=== PATIENT | female | born 1970 | race Caucasian/White ===

== ENCOUNTER 2017-06-26 20:15 | Emergency (ER) | payer MEDICAID, OTHER ==
[2017-06-26 20:27] VITALS: BP 138/74
--- NOTE | 2017-06-26 20:27 | EDM.PDOC ---
ED HPI GENERAL MEDICAL PROBLEM - General Chief Complaint: Neurological Problem Stated Complaint: DIZZY FOR 2 HOURS Time Seen by Provider: 06/26/17 20:39 Source of Information: Reports: Patient, Family (spouse) History Limitations: Reports: No Limitations - History of Present Illness INITIAL COMMENTS - FREE TEXT/NARRATIVE: 46-year-old female presents to the ED with complaint of feeling dizzy for the last 2 hours. Patient has a history of intermittent paroxysmal vertigo but not for many years. She states symptoms started about 2 hours ago and are worsened with movement of the head or neck. Better she's lying perfectly still. No associated nausea vomiting. Patient wears bilateral hearing aids with no recent changes. She does not appreciate any increased humming or buzzing in her ears. No associated headache. Does not feel her vision is blurred. She states she has a previous cardiac problem with intermittent paroxysmal ventricular tachyarrhythmias that was ablated in 2006. Prior to that she had a defibrillator pacemaker placed. It was removed after the ablation. She used to have a lot more vertigo or dizzy episodes prior to the ablation. She really doesn't feel lightheaded it's more vertigo. appreciates that she is offkilter and her gait listing a little bit to the left like she is walking drunk. Denies any recent falls or closed head injuries. She did have supper and is been eating and drinking well. She's not been recently ill with any upper respiratory tract infection or sinus infection. Onset: Today Onset Date: 06/26/17 Onset Time: 18:45 Duration: Hour(s): (Targeted about 2-1/2 hours ago.) Location: Reports: Generalized (Sense of spinning and) Quality: Reports: Other (Paroxysmal vertigo) Severity: Moderate Improves with: Reports: Rest Worsens with: Reports: Movement Context: Reports: Other (Spontaneous occurrence which it has done many times in the past but not recently.). 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 1 dose PO ASDIRECTED 06/04/16 [History] Levothyroxine 175 mcg PO ACBRK #60 tab 06/26/17 [Rx] Meclizine HCl 25 mg PO Q8H #15 tablet 06/26/17 [Rx] Past Medical History Cardiovascular History: Reports: Other (See Below) Other Cardiovascular History: CPVT--initially treated with defibrillator pacemaker and then in 2006 underwent ablation and the defibrillator pacemaker was removed. Interestingly her mother has it and one of her sisters from it and her other sister has it as well. Neurological History: Reports: Vertigo (Intermittent paroxysmal benign vertigo.) - Past Surgical History HEENT Surgical History: Reports: Other (See Below) Social & Family History - Tobacco Use Smoking Status *Q: Never Smoker Second Hand Smoke Exposure: No - Alcohol Use Days Per Week of Alcohol Use: 1 Number of Drinks Per Day: 2 Total Drinks Per Week: 2 - Recreational Drug Use Recreational Drug Use: No - Living Situation & Occupation Living situation: Reports: Occupation: Employed ED ROS GENERAL - Review of Systems Review Of Systems: See Below Constitutional: Denies: Fever, Chills, Malaise, Weakness, Fatigue, Decreased Appetite, Weight Loss HEENT: Reports: Hearing Loss (Wears hearing aids in both ears.), Vertigo. Denies: Vision Change Respiratory: Reports: No Symptoms Cardiovascular: Reports: No Symptoms. Denies: Chest Pain, Blood Pressure Problem, Palpitations Endocrine: Reports: No Symptoms (She checked her pulse right away did not identify any palpitations) GI/Abdominal: Reports: No Symptoms : Reports: No Symptoms Musculoskeletal: Reports: No Symptoms Skin: Reports: No Symptoms Neurological: Reports: Dizziness, Difficulty Walking (Listing a little bit to the left walking ataxic like she has been drinking.), Gait Disturbance Psychiatric: Reports: No Symptoms Hematologic/Lymphatic: Reports: No Symptoms Immunologic: Reports: No Symptoms ED EXAM, DIZZINESS - Physical Exam Exam: See Below Exam Limited By: No Limitations General Appearance: Alert, WD/WN, No Apparent Distress Eye Exam: Bilateral Eye: Normal Inspection Ears: Normal External Exam, Normal TMs Throat/Mouth: Normal Inspection, Normal Lips, Normal Teeth, Normal Oropharynx Head Exam: Atraumatic, Normocephalic Vertigo: worsens with head to L, short duration Neck: Normal Inspection, Supple, Non-Tender, Full Range of Motion. No: Carotid Bruit, Lymphadenopathy (L), Lymphadenopathy (R) Respiratory/Chest: No Respiratory Distress, Lungs Clear, Normal Breath Sounds, No Accessory Muscle Use Cardiovascular: Normal Peripheral Pulses, Regular Rate, Rhythm, No Edema, No Gallop, No Murmur, Other GI/Abdominal: Normal Bowel Sounds, Soft, Non-Tender, No Organomegaly Neurological: Alert, Normal Mood/Affect, Normal Dorsiflexion, CN II-XII Intact, Normal Plantar Flexion, Normal Gait, Normal Reflexes, No Motor/Sensory Deficits , Oriented x 3, Other. No: Abnormal Finger to Nose Back Exam: Normal Inspection, Full Range of Motion Extremities: Normal Inspection, Normal Range of Motion, Non-Tender, No Pedal Edema Psychiatric: Normal Affect, Normal Mood Skin Exam: Warm, Dry, Intact, Normal Color, No Rash EKG INTERPRETATION EKG Date: 06/26/17 Time: 21:00 Rhythm: Other Rate (Beats/Min): 56 [place]: Normal P-Wave: Present QRS: Other (There is decreased voltage both in the precordial and limb leads.) ST-T: Other (There is T-wave inversion V2 flat in V3 which are nonspecific findings.) QT: Prolonged (QT is moderately prolonged) EKG Interpretation Comments: Abnormal ECG Course - Vital Signs Last Recorded V/S: Last Vital Signs Temp 36.3 C 06/26/17 20:25 Pulse 56 L 06/26/17 20:25 Resp 11 L 06/26/17 20:25 BP 138/74 06/26/17 20:25 Pulse Ox 98 06/26/17 20:25 - Orders/Labs/Meds Orders: Active Orders 24 hr Category Date Time Status EKG Documentation Completion [RC] STAT Care 06/26/17 20:40 Active Labs: Laboratory Tests 06/26/17 06/26/17 Range/Units 20:45 20:45 WBC 7.35 (3.98-10.04) K/mm3 RBC 4.39 (3.98-5.22) M/mm3 Hgb 13.3 (11.2-15.7) gm/L Hct 40.0 (34.1-44.9) % MCV 91.1 (79.4-94.8) fl MCH 30.3 (25.6-32.2) pg MCHC 33.3 (32.2-35.5) g/dl RDW Std Deviation 42.0 (36.4-46.3) fL Plt Count 155 L (182-369) K/mm3 MPV 11.8 (9.4-12.3) fl Neutrophils % (Manual) 44 (40-60) % Band Neutrophils % 0 (0-10) % Lymphocytes % (Manual) 47 H (20-40) % Atypical Lymphs % 0 % Monocytes % (Manual) 8 (2-10) % Eosinophils % (Manual) 1 (0.7-5.8) % Basophils % (Manual) 0 L (0.1-1.2) Platelet Estimate Adequate Plt Morphology Comment Normal RBC Morph Comment Normal Sodium 140 (136-145) mEq/L Potassium 3.5 (3.5-5.1) mEq/L Chloride 103 (98-107) mEq/L Carbon Dioxide 28 (21-32) mEq/L Anion Gap 12.5 (5-15) BUN 17 (7-18) mg/dL Creatinine 1.1 H (0.55-1.02) mg/dL Est Cr Clr Drug Dosing 55.77 mL/min Estimated GFR (MDRD) 54 (>60) mL/min BUN/Creatinine Ratio 15.5 (14-18) Glucose 93 (74-106) mg/dL Calcium 9.1 (8.5-10.1) mg/dL Magnesium 2.0 (1.8-2.4) mg/dl Total Bilirubin 0.2 (0.2-1.0) mg/dL AST 15 (15-37) U/L ALT 33 (14-59) U/L Alkaline Phosphatase 54 (46-116) U/L Troponin I < 0.017 (0.00-0.056) ng/mL C-Reactive Protein < 0.2 (<1.0) mg/dL Total Protein 7.5 (6.4-8.2) g/dl Albumin 4.0 (3.4-5.0) g/dl Globulin 3.5 gm/dL Albumin/Globulin Ratio 1.1 (1-2) TSH 3rd Generation 23.974 H (0.358-3.74) uIU/mL Meds: Medications Discontinued Medications Generic Name Dose Route Start Last Admin Trade Name Shakir PRN Reason Stop Dose Admin Dextrose/Sodium Chloride 1,000 mls @ 250 mls/hr 06/26/17 20:45 06/26/17 20:48 Dextrose 5%-Normal Saline IV 250 mls/hr ASDIRECTED MARI Administration Lorazepam 0.5 mg 06/26/17 20:39 06/26/17 20:48 Ativan IVPUSH 06/26/17 20:40 0.5 mg ONETIME ONE Administration Meclizine HCl 25 mg 06/26/17 22:08 06/27/17 01:02 Antivert PO 06/26/17 22:09 Not Given ONETIME ONE Metoclopramide HCl 10 mg 06/26/17 20:39 06/26/17 20:48 Reglan IVPUSH 06/26/17 20:40 10 mg ONETIME ONE Administration - Radiology Interpretation Free Text/Narrative:: 46-year-old female presents the ED with paroxysmal vertigo. It is lasted about 2 hours. Worse with movement that or if she holds still. No recent falls or closed head injuries. Patient reports she's had similar episodes in the past but never lasting quite this long. No associated nausea or vomiting. No headache. Neurological exam is normal. There is no nystagmus either. She has ataxic however on walking listing slightly towards the right side. No neurological deficit on exam. Plan routine labs will be obtained. IV will be D5 normal saline at 250 mils per hour. Given Reglan 10 mg IV with Ativan 0.5 mg IV for relief of vertigo. - Re-Assessments/Exams Free Text/Narrative Re-Assessment/Exam: 06/26/17 22:09 Labs reveal a normal white count of 7.35 differential 44% neutrophils no bands and 47% lymphocytes suggesting possible viral etiology. Hemoglobin is 13.3 with hematocrit of 40.0. Bili count is 155,000. Sodium 140 potassium low-normal at 3.5. Chloride 103 bicarbonate 28. And a gap is 12.5. BUN is 17 with a creatinine of 1.1. GFR is 54. Glucose is 93. Calcium 9.1 magnesium 2.0. Liver function normal cardiac markers normal .TSH is 23.974 indicating significant hypothyroidism. 06/26/17 22:10 I have the patient up in the room and she is able to walk with less vertiginous-like symptoms. Plan will be to place her on meclizine 25 mg by mouth now and then 25 mg every 8 hours for the next 5 days for vertigo relief. Patient is not sure of her current thyroid or levothyroxine dose is 100 g her 125 g. She admits that she is taking it daily. She has all aside symptoms of significant hypothyroidism with fatigue hair loss dry skin constipation , bradycardia etc. With a TSH of 23 she is significantly hypothyroid. I'm going to increase her levothyroxine to 175 g daily which she is to start tomorrow. She will have repeat TSH in clinic in 6 weeks' time. She mildly well require a higher dose than 175 to bring her TSH down between 1 and 2. Departure - Departure Time of Disposition: 22:16 Disposition: Home, Self-Care 01 Condition: Fair Clinical Impression: Benign paroxysmal vertigo, left ear, Hypothyroidism (acquired) - Discharge Information Prescriptions: Levothyroxine 175 mcg PO ACBRK #60 tab Meclizine HCl 25 mg PO Q8H #15 tablet Instructions: Hypothyroidism Referrals: Edita Cody NP [Primary Care Provider] - Forms: ED Department Discharge Additional Instructions: Evaluation in the emergency him today in regards to development of paroxysmal benign positional vertigo. Worse at the left labyrinth or balance mechanism is malfunctioning. Created problems walking with ataxic gait without any nausea or vomiting. Symptoms are better if you hold still. You're treated in the ED with intravenous fluids and medications Reglan 10 mg and Ativan 0.5 mg to bring the vertigo under control. You have very mild symptoms after an hour and a quarter of had the medication. Suggest meclizine 25 mg every 8 hours for the next 5 days with first tablet provided in the ED at the time of discharge. Second problem identified was hypothyroidism.. It appears current thyrodi medication dose is inadequately controlling your hypothyroidism.Suggest an increse of Levothroxin to 175mcg per day. He will require repeat thyroid function testing in approximate 6 weeks time. Please attend to personal care physician in this regard. Also I would suggest having your serum lipids and cholesterol levels checked as well. - My Orders Last 24 Hours: My Active Orders 06/26/17 20:40 EKG Documentation Completion [RC] STAT - Assessment/Plan Last 24 Hours: My Active Orders 06/26/17 20:40 EKG Documentation Completion [RC] STAT
[2017-06-26] MEDS ORDERED: Metoclopramide 10 MG/2 ML SDV IVPUSH ONE (20:39)
[2017-06-26] MEDS ORDERED: LORazepam 2 MG/ML SDV IVPUSH ONE (20:39)
[2017-06-26] MEDS ORDERED: Dextrose 5%-0.9% NaCl 1,000 ML IV SCH (20:45)
[2017-06-26] MEDS ORDERED: Meclizine 12.5 MG Tab PO ONE (22:08)
== END 2017-06-26 22:30 | disposition home or self-care (01) ==
LOC: JD.ED 20:15
DX: H81.12 Benign paroxysmal vertigo, left ear (principal); E03.9 Hypothyroidism, unspecified; Z79.899 Other long term (current) drug therapy; Z88.8 Allergy status to other drugs, medicaments and biological substances
CPT/HCPCS: 36415; 80053; 83735; 84443; 84484; 85025; 86140; 93005; 96361; 96374; 96375; 99284; J2060; J2765; J7042

== ENCOUNTER → 2019-03-29 | Day surgery (SDC) | payer SELFPAY ==
[~2019-03-29] MED LIST: HYDROmorphone 0.5 MG/0.5 ML Syringe IVPUSH PRN; Ibuprofen 600 MG Tab PO PRN; Ketorolac 30 MG/ML SDV IVPUSH PRN; Ketorolac 30 MG/ML SDV IVPUSH SCH; Lactated Ringers 1,000 ML IV SCH; Lactated Ringers 1,000 ML ONE; Lidocaine 1% 4 ML ONE; Lidocaine 1%/Sod Bicarbonate in NS 8.4% 1 ML Syringe IDERM PRN; Midazolam 1 MG/ML 2 ML SDV ONE; Neostigmine Methylsulfate 1 MG/ML 5 ML Syringe ONE; Ondansetron 4 MG/2 ML SDV IVPUSH PRN; Ondansetron 4 MG/2 ML SDV ONE; Propofol 200 MG/20 ML SDV ONE; Rocuronium 100 MG/10 ML MDV ONE; Sodium Chloride 0.9% 10 ML Syringe FLUSH PRN; ceFAZolin 1 GM Vial ONE; fentaNYL 100 MCG/2 ML SDV IVPUSH PRN; fentaNYL 250 MCG/5 ML SDV ONE
--- NOTE | 2019-03-29 06:44 | PCM.PREANE ---
Preanesthetic Assessment - Anesthesia/Transfusion/Family Hx Anesthesia History: Prior Anesthesia Without Reaction Family History of Anesthesia Reaction: No Transfusion History: No Prior Transfusion(s) - Review of Systems General: No Symptoms Pulmonary: No Symptoms Cardiovascular: Dyspnea on Exertion Gastrointestinal: No Symptoms Neurological: No Symptoms Other: Reports: Thyroid Problems (hypothyroid), Anxiety - Physical Assessment NPO Status Date: 03/28/19 NPO Status Time: 00:00 Vital Signs: Last Vital Signs Temp 36.6 C 03/29/19 06:20 Pulse 59 L 03/29/19 06:20 Resp 16 03/29/19 06:20 BP 124/73 03/29/19 06:20 Pulse Ox 96 03/29/19 06:20 Height: 1.63 m Weight: 85.094 kg ASA Class: 2 Mental Status: Alert & Oriented x3 Airway Class: Mallampati = 1 Dentition: Reports: Normal Dentition, [place](s) Thyro-Mental Finger Breadths: 3 Mouth Opening Finger Breadths: 3 ROM/Head Extension: Full Lungs: Clear to Auscultation, Normal Respiratory Effort Cardiovascular: Regular Rate, Regular Rhythm - Lab Values: Laboratory Last Values Urine Color Yellow (Yellow) 03/29/19 06:15 Urine Appearance Clear (Clear) 03/29/19 06:15 Urine pH 6.5 (5.0-8.0) 03/29/19 06:15 Ur Specific [place] 1.025 (1.005-1.030) 03/29/19 06:15 Urine Protein Negative (Negative) 03/29/19 06:15 Urine Glucose (UA) Negative (Negative) 03/29/19 06:15 Urine Ketones Negative (Negative) 03/29/19 06:15 Urine Occult Blood Negative (Negative) 03/29/19 06:15 Urine Nitrite Negative (Negative) 03/29/19 06:15 Urine Bilirubin Negative (Negative) 03/29/19 06:15 Urine Urobilinogen 0.2 (0.2-1.0) 03/29/19 06:15 Ur Leukocyte Esterase 1+ (Negative) H 03/29/19 06:15 Urine HCG, Qual Negative (NEGATIVE) 03/29/19 06:14 - Allergies Allergies/Adverse Reactions: Allergies Allergy/AdvReac Type Severity Reaction Status Date / Time gabapentin Allergy Intermediate Hives Verified 03/28/19 14:33 - Anesthesia Plan Pre-Op Medication Ordered: None - Acknowledgements Anesthesia Type Planned: General Anesthesia Pt an Appropriate Candidate for the Planned Anesthesia: Yes Alternatives and Risks of Anesthesia Discussed w Pt/Guardian: Yes Pt/Guardian Understands and Agrees with Anesthesia Plan: Yes PreAnesthesia Questionnaire HEENT History: Reports: Hard of Hearing, Impaired Vision Other HEENT History: Wears glasses, bilateral hearing aids, retinis pigmentosa Cardiovascular History: Reports: Other (See Below) Other Cardiovascular History: CPVT--initially treated with defibrillator pacemaker and then in 2006 underwent ablation and the defibrillator pacemaker was removed. Interestingly her mother has it and one of her sisters from it and her other sister has it as well. Respiratory History: Reports: None Gastrointestinal History: Reports: None Genitourinary History: Reports: Other (See Below) Other Genitourinary History: renal cyst [employer] SUPERINTENDENT History: Reports: , Other (See Below) Other OB/BYN History: ascus, pelvic pain, irregular menses, , cerical cryosurgery, LEEP, colposcopy Musculoskeletal History: Reports: None Neurological History: Reports: Headaches, Chronic, Vertigo Other Neuro History: bulging lumbar disc L4L5, herniated disc t4t5, degeneration nerve surgery to right, degenerative disc disease Psychiatric History: Reports: Anxiety Endocrine/Metabolic History: Reports: Diabetes, Gestational, Hypothyroidism, Obesity/BMI 30+ Hematologic History: Reports: None Immunologic History: Reports: None Oncologic (Cancer) History: Reports: None Dermatologic History: Reports: None - Past Surgical History Head Surgeries/Procedures: Reports: None HEENT Surgical History: Reports: Other (See Below) Other HEENT Surgeries/Procedures: retinitis pigmentosa Cardiovascular Surgical History: Reports: Cardiac Ablation Respiratory Surgical History: Reports: None GI Surgical History: Reports: None Female Surgical History: Reports: None, Tubal Ligation Male Surgical History: Endocrine Surgical History: Reports: None, Thyroidectomy Neurological Surgical History: Reports: None Musculoskeletal Surgical History: Reports: Arthroscopic Procedure, Other (See Below) Other Musculoskeletal Surgeries/Procedures:: right ankle surgery Oncologic Surgical History: Reports: None Dermatological Surgical History: Reports: None - SUBSTANCE USE Smoking Status *Q: Never Smoker Tobacco Use Within Last Twelve Months: No Second Hand Smoke Exposure: No Days Per Week of Alcohol Use: 0 Number of Drinks Per Day: 1 Total Drinks Per Week: 0 Recreational Drug Use History: No - HOME MEDS Home Medications: Home Meds Ascorbic Acid [Vitamin C] 250 mg PO DAILY 03/28/19 [History] Cholecalciferol (Vitamin D3) [Vitamin D3] 50,000 unit PO WE 03/28/19 [History] Ibuprofen 600 mg PO Q6HR PRN 03/28/19 [History] Levothyroxine Sodium [Levoxyl] 150 mcg PO DAILY 03/28/19 [History] Meclizine [Antivert] 25 mg PO Q8H PRN 03/28/19 [History] Multivitamin [Daily Multiple Vitamin] 1 tab PO DAILY 03/28/19 [History] Nitroglycerin [Nitrostat] 0.4 mg SL ASDIRECTED PRN 03/28/19 [History] Vitamin A 16,000 unit PO DAILY 03/28/19 [History] buPROPion HCl [Wellbutrin Xl] 150 mg PO DAILY 03/28/19 [History] - CURRENT (IN HOUSE) MEDS Current Meds: Current Medications Lactated Ringer's (Ringers, Lactated) 1,000 mls @ 125 mls/hr IV ASDIRECTED MARI Stop: 03/29/19 23:00 Lidocaine/Sodium Bicarbonate (Buffered Lidocaine 1% In Ns 8.4%) 0.25 ml IDERM ONETIME PRN PRN Reason: Prior to IV Start Stop: 03/29/19 18:00 Sodium Chloride (Saline Flush) 10 ml FLUSH ASDIRECTED PRN PRN Reason: Keep Vein Open Stop: 03/29/19 18:00 Discontinued Medications Lactated Ringer's (Ringers, Lactated) 1,000 mls @ 125 mls/hr IV ASDIRECTED MARI Stop: 03/01/19 23:00 Lidocaine/Sodium Bicarbonate (Buffered Lidocaine 1% In Ns 8.4%) 0.25 ml IDERM ONETIME PRN PRN Reason: Prior to IV Start Stop: 03/01/19 18:00 Sodium Chloride (Saline Flush) 10 ml FLUSH ASDIRECTED PRN PRN Reason: Keep Vein Open Stop: 03/01/19 18:00
--- NOTE | 2019-03-29 07:35 | PCM.OPNOTE ---
- General Post-Op/Procedure Note Date of Surgery/Procedure: 03/29/19 Operative Procedure(s): Hysteroscopy, her endometrial ablation Findings: Uterus was normal in size. It sounded to 7-1/2 cm. With was 3.8 inches. The power used was 115 W. The treatment duration was 16 seconds. Lateral adnexal areas were without masses. Pre Op Diagnosis: 1. Irregular uterine bleeding. 2. Uterine fibroid. 3. Pelvic pain Post-Op Diagnosis: Same Anesthesia Technique: General ET Tube Primary Surgeon: Jase Pool Secondary Surgeon: Yas Sunshine Fluid Replacement, Intraop: 1,300 EBL in mLs: 1 Complications: None Condition: Good Free Text/Narrative:: Surgery duration: 11 minutes Procedure: Patient was instructed as to procedure, its risks, benefits, limitations and follow-up and had signed a consent for surgery. The patient is taken the operative placed in a supine position on the operating table. She received 2 g of Ancef preoperatively for infection prophylaxis and had sequential compression stockings in place for DVT prophylaxis. Patient was given general anesthesia and an endotracheal tube was placed for ventilation. She is placed in a dorsal lithotomy position and prepped and draped in usual fashion. An exam under anesthesia was performed. Findings as described above. A weighted speculum was placed in the vagina. Cervix is visualized. It was grasped anteriorly with a single-tooth tenaculum. Uterus was then sounded to a depth of 9 cm. The cervix was dilated to allow passage of a 5 mm 12 rigid hysteroscope. This was placed without problem and normal saline was used as a distending medium. The endometrial cavity was visualized. Findings as described above. No findings were noted in the endometrial cavity except possible small uterine septum. On D&C was not performed. Endometrial ablation was then performed. Should be noted consent was appropriately signed by the patient prior to the procedure. The cervix was dilated to allow placement of the NovaSure endometrial apparatus. Uterine cavity was 5.5 cm in length and 3.8 cm in width. [place] used were 115. Therapy last 1 and 6 seconds. Hysteroscope was then placed back into the endometrial cavity. Blood was flushed out and the findings were consistent with a cauterized endometrial cavity. At this point the scope was removed. The vagina was cleared of old blood , the cervix was released and the weighted speculum was removed. Patient was returned to supine position and awakened from general anesthesia. She tolerated the procedure well and operating room in good condition.
--- NOTE | 2019-03-29 07:43 | PCM.POSTAN ---
POST ANESTHESIA ASSESSMENT - MENTAL STATUS Mental Status: Alert, Oriented - VITAL SIGNS Vital Signs: Last Vital Signs Temp 36.6 C 03/29/19 06:20 Pulse 59 L 03/29/19 06:20 Resp 16 03/29/19 06:20 BP 124/73 03/29/19 06:20 Pulse Ox 96 03/29/19 06:20 - RESPIRATORY Respiratory Status: Respiratory Rate WNL, Airway Patent, O2 Saturation Stable - CARDIOVASCULAR CV Status: Pulse Rate WNL, Blood Pressure Stable - GASTROINTESTINAL GI Status: No Symptoms - PAIN Pain Score: 0 - POST OP HYDRATION Hydration Status: Adequate & Stable - OBSERVATIONS Free Text/Narrative:: no anesthesia complications noted
[2019-03-29 09:01] VITALS: BP 120/71; PULSE 54
--- NOTE | 2019-03-29 15:00 | PCM48HPAN ---
Post Anesthesia Note - EVALUATION WITHIN 48HRS OF ANESTHETIC Vital Signs in Normal Range: Yes Patient Participated in Evaluation: Yes Respiratory Function Stable: Yes Airway Patent: Yes Cardiovascular Function Stable: Yes Hydration Status Stable: Yes Pain Control Satisfactory: Yes Nausea and Vomiting Control Satisfactory: Yes Mental Status Recovered: Yes Vital Signs: Last Vital Signs Temp 36.7 C 03/29/19 08:20 Pulse 54 L 03/29/19 08:45 Resp 16 03/29/19 08:45 BP 120/71 03/29/19 08:45 Pulse Ox 98 03/29/19 08:45
== END | disposition home or self-care (01) ==
LOC: JD.SDS 06:09
PROVIDERS: ATTEND Obstetrics & Gynecology
DX: D25.9 Leiomyoma of uterus, unspecified (principal); E78.5 Hyperlipidemia, unspecified; F41.9 Anxiety disorder, unspecified; F32.9 Major depressive disorder, single episode, unspecified; M51.36 Other intervertebral disc degeneration, lumbar region; M51.26 Other intervertebral disc displacement, lumbar region; M51.24 Other intervertebral disc displacement, thoracic region; E66.9 Obesity, unspecified; Z79.899 Other long term (current) drug therapy; Z88.8 Allergy status to other drugs, medicaments and biological substances; Z68.33 Body mass index [BMI] 33.0-33.9, adult
CPT/HCPCS: 36415; 58563; 80053; 81001; 81025; 85025; J0690; J2001; J2250; J2405; J2704; J2710; J3010; J7120; 00952

== ENCOUNTER → 2021-08-17 | Day surgery (SDC) | payer MEDICAID ==
[~2021-08-17] MED LIST changes: +Dexamethasone 4 MG/ML 5 ML MDV ONE; -HYDROmorphone 0.5 MG/0.5 ML Syringe IVPUSH PRN; -Ibuprofen 600 MG Tab PO PRN; -Ketorolac 30 MG/ML SDV IVPUSH PRN; -Ketorolac 30 MG/ML SDV IVPUSH SCH; -Lactated Ringers 1,000 ML ONE; +Lidocaine 1% 0 ML ONE; -Lidocaine 1% 4 ML ONE; -Neostigmine Methylsulfate 1 MG/ML 5 ML Syringe ONE; -Ondansetron 4 MG/2 ML SDV IVPUSH PRN; -Rocuronium 100 MG/10 ML MDV ONE; +Rocuronium 50 MG/5 ML Vial ONE; +Sodium Chloride 0.9% 10 ML Syringe FLUSH SCH; -fentaNYL 100 MCG/2 ML SDV IVPUSH PRN
[2021-08-17 12:32] VITALS: BP 130/58; PULSE 52
== END ==
LOC: JD.SDS 07:35
PROVIDERS: ATTEND Obstetrics & Gynecology
DX: R10.2 Pelvic and perineal pain (principal); Z53.09 Procedure and treatment not carried out because of other contraindication; E78.00 Pure hypercholesterolemia, unspecified
CPT/HCPCS: 36415; 80053; 81003; 81025; 85025; J7120; J0690; J1100; J2250; J2405; J2704; J3010

== ENCOUNTER → 2021-08-24 | Day surgery (SDC) | payer MEDICAID ==
[~2021-08-24] MED LIST changes: +Acetaminophen/oxyCODONE 325-5 MG Tab PO PRN; +Bupivacaine 0.5% 30 ML SDV ONE; +HYDROmorphone 0.5 MG/0.5 ML Syringe IVPUSH PRN; +Ibuprofen 600 MG Tab PO PRN; +Ketorolac 30 MG/ML SDV ONE; +Lactated Ringers 1,000 ML ONE; -Lidocaine 1% 0 ML ONE; +Lidocaine 1% 4 ML ONE; +Lidocaine 1% with EPINEPHrine 1:100,000 20 ML MDV ONE; +Ondansetron 4 MG/2 ML SDV IVPUSH PRN; +Sodium Chloride 0.9% 50 ML SDV ONE; +fentaNYL 100 MCG/2 ML SDV IVPUSH PRN
[2021-08-24 12:32] VITALS: BP 114/70; PULSE 56
== END | disposition home or self-care (01) ==
LOC: JD.SDS 08:17
PROVIDERS: ATTEND Obstetrics & Gynecology
DX: N80.0 Endometriosis of uterus (principal); D25.1 Intramural leiomyoma of uterus; N83.8 Other noninflammatory disorders of ovary, fallopian tube and broad ligament; N90.89 Other specified noninflammatory disorders of vulva and perineum; N81.10 Cystocele, unspecified; N81.6 Rectocele; N39.3 Stress incontinence (female) (male); E78.00 Pure hypercholesterolemia, unspecified; H54.7 Unspecified visual loss; E03.9 Hypothyroidism, unspecified; H91.90 Unspecified hearing loss, unspecified ear; E11.9 Type 2 diabetes mellitus without complications; E66.9 Obesity, unspecified; Z68.31 Body mass index [BMI] 31.0-31.9, adult; Z88.8 Allergy status to other drugs, medicaments and biological substances; Z79.890 Hormone replacement therapy; Z79.899 Other long term (current) drug therapy; Z79.84 Long term (current) use of oral hypoglycemic drugs
CPT/HCPCS: 36415; 56620; 57288; 58262; 82947; 86850; 86900; 86901; A9270; C1771; J0690; J1100; J1885; J2250; J2405; J2704; J2710; J3010; J3490; J7120; 00944